=== PATIENT | female | born 1990 | race Caucasian/White ===

== ENCOUNTER 2017-05-27 08:36 | Inpatient (IN) | payer OTHER ==
[~2017-05-27] VITALS: Ht 154.9 cm; Wt 85.3 kg
[~2017-05-27 08:36] MED LIST: AMOXICILLIN875 M1 PO
[2017-05-27 09:00] VITALS: BP 104/66
[2017-05-27] MEDS ORDERED: PRENATAL TABLE1 EAC2 PO (09:07)
[2017-05-27] MEDS ORDERED: FERRALET 90 TA1 EACH PO (09:08)
[2017-05-27 09:16] LABS: ABSOLUTE BASOPHIL COUNT 0 /CUMM (0.0-0.2); ABSOLUTE EOSINOPHIL COUNT 0 /CUMM (0.0-0.7); ABSOLUTE GRANULOCYTE CT 5.7 /CUMM (1.4-6.5); ABSOLUTE LYMPH COUNT 1.3 /CUMM (1.2-3.4); ABSOLUTE MONOCYTE COUNT 0.5 /CUMM (0.10-0.60); BASOPHIL % 0.2 % (0.0-2.0); EOSINOPHIL % 0.3 % (0-5); GRANULOCYTE % 75.6 % (42.2-75.2); HEMATOCRIT 35.4 % (37-47); MEAN CORPUSCULAR HGB 30.6 PG (27.0-31.0); MEAN CORPUSCULAR HGB CONC 33.6 G/DL (33.0-37.0); MEAN CORPUSCULAR VOLUME 91.1 FL (81.0-99.0); MEAN PLATELET VOLUME 8.6 FL (7.4-10.4); PLATELET COUNT 204 /CUMM (130-400); RBC DISTRIBUTION WIDTH 15.5 % (11.5-14.5); RED BLOOD CELL CT 3.88 /CUMM (4.20-5.40); WHITE BLOOD CELL COUNT 7.5 /CUMM (4.8-10.8)
--- NOTE | 2017-05-27 09:59 | History & Physical ---
General Information and HPI MD Statement: I have seen and personally examined ANNELISE CRUZ and documented this H&P. The patient is a 27 year old female at [41] weeks and [2] days gestation who presented with a chief complaint of [IOL]. Source of Information: patient Exam Limitations: no limitations History of Present Illness: 27yo, 41 2/7wks, here for IOL due to postdates. she has no complaints today, denies ctxs, no VB or LOF, reports GFM. care started at 7+ wks, hemoglobin alpha chain variant, FOB tested negative, pt takes iron supplement. GBS positive. Allergies/Medications Allergies: Coded Allergies: No Known Allergies (08/07/15) Home Med list Iron Carb,Gl/FA/B12/C/Docusate (Ferralet 90 Tablet) 90 MG-1 MG-12 MCG-120 MG-50 MG TABLET 1 TAB PO DAILY ANEMIA (Reported) Vit No.130/Iron/FA ( Tablet) 27 MG IRON-800 MCG TABLET 1 TAB PO DAILY (Reported) Compliance With Home Meds: GOOD Past History siderographer History : 2 Para: 0 Last Menstrual Period: 08/11/2016 Estimated Delivery Date: 05/18/2017 Past siderographer History: non-contributory Medical History Blood Transfusion Hx: No Neurological: NONE EENT: NONE Cardiovascular: NONE Respiratory: NONE Gastrointestinal: NONE Hepatic: NONE Renal: NONE Musculoskeletal: NONE Psychiatric: NONE Endocrine: NONE Blood Disorders: anemia, Hgb alpha chain variant Cancer(s): NONE FINANCE ADMINISTRATOR/Reproductive: NONE Surgical History Pertinent Surgical History: non-contributory Past Family/Social History Psychosocial History Where do you live? Home Smoking Status: Former Smoker ETOH Use: denies use Illicit Drug Use: denies illicit drug use Review of Systems Review of Systems Constitutional: Reports: no symptoms. EENTM: Reports: no symptoms. Cardiovascular: Reports: no symptoms. Respiratory: Reports: no symptoms. GI: Reports: no symptoms. Genitourinary: Reports: see HPI. Musculoskeletal: Reports: no symptoms. Skin: Reports: no symptoms. Neurological/Psychological: Reports: no symptoms. Hematologic/Endocrine: Reports: see HPI. Immunologic/Allergic: Reports: no symptoms. All Other Systems: Reviewed and Negative Date of LMP: 08/11/16 Post Menopausal: No Exam & Diagnostic Data Last 24 Hrs of Vital Signs/I&O Vital Signs Date Time Temp Pulse Resp B/P B/P Pulse O2 O2 Flow FiO2 Mean Ox Delivery Rate 05/27 0900 104/66 Intake & Output 05/27 1600 05/27 0800 05/27 0000 Intake Total Output Total Balance Patient 85.275 kg Weight Obstetric Exam Wgt Gained During : 47lbs Pelvimetry: adequate Dilation (cm): 0 Effacement (%): 50 Station: -3 Membranes: intact Fluid: unknown Fundal Height (cm): 40 Multiple Gestation? No Contractions: none #1 - FHR Baseline: 130 Category: 1 Estimated Weight: [id number] Presentation: vertex Patient for Induction? Yes Sullivan Score Sullivan Score Response Value Cervix Position: posterior 0 Cervix Consistency: medium 1 Cervix Effacement: 30-50% 1 Cervix Dilation: closed 0 Cervix Station: -3 0 Total 2 Physical Exam: VSS general: NAD Abdomen: gravid, soft, nontender Ext: DCT (-) Labs Blood Type & Rh: A positive Antibody Screen: negative Hct/Hgb & Platelets #1: 14.6/45.1%,[id number] Hct/Hgb & Platelets #2: 10.9/34.7%,[id number] Rubella: immune VDRL #1: negative VDRL #2: negative HbsAg: negative HIV #1: negative HIV #2 negative 1 Hr P Group B Strep: positive Initial Ultrasound: IUP at 7+ wks Anatomy Ultrasound: nl Ultrasound for EFW: [id number] on 05/22/2017 Genetic Testing: nl Last 24 Hrs of Labs/Say: Laboratory Tests 05/27/17 0852: CBC w Diff NO MAN DIFF REQ, RBC 3.88 L, MCV 91.1, MCH 30.6, MCHC 33.6, RDW 15.5 H, MPV 8.6, Gran % 75.6 H, Lymphocytes % 17.4 L, Monocytes % 6.5, Eosinophils % 0.3, Basophils % 0.2, Absolute Granulocytes 5.7, Absolute Lymphocytes 1.3, Absolute Monocytes 0.5, Absolute Eosinophils 0, Absolute Basophils 0, Urine Color YEL, Urine Clarity HAZY H, Urine pH 6.0, Ur Specific [place] 1.025, Urine Protein NEG, Urine Ketones NEG, Urine Nitrite NEG, Urine Bilirubin NEG, Urine Urobilinogen 0.2, Ur Leukocyte Esterase NEG, Ur Microscopic SEDIMENT EXAMINED, Urine RBC 1-3, Urine WBC RARE, Ur Epithelial Cells MANY H, Urine Bacteria MOD H, Urine Hemoglobin NEG, Urine Glucose NEG Assessment/Plan Assessment/Plan: 27yo, 41 2/7wks, postdates, IOL 1. admit pt, admission labs 2. R/B/A of IOL d/w pt , she understand. cervical ripening with miswoprostol d/w pt, she agreed. R/B/A of misoprostol d/w pt, she understand, all questions ans wered, 1 st dose of misoprostol placed at 9: 45AM 3. Antibiotics for GBS prophylaxis when in labor 4. monitor closely As Ranked By This Provider Problem List: 1. 2. Post-dates Core Measures Venous Thromboembolism VTE Risk Factors / No Mechanical VTE Prophylaxis d/t LowRisk-No Interven Req'd No VTE Pharm Prophylaxis d/t LowRisk-No Interven Req'd Attending MD Review Statement Attending Statement Attending MD Statement: examined this patient, discussed with family, discussed w/nursing
--- NOTE | 2017-05-27 17:42 | PN- OBGYN ---
Surgical Brief Attending Note Brief Attending Note: pt is ambulating, no complaints on TOCO: occasional ctxs, FHR cat I cervix closed/50%/-3 will use cervidil for IOL, R/B/A of cervidil d/w pt, she undesrtand and agreed. cervidil 10mg placed in vagina at 5: 15PM, will monitor closely
--- NOTE | 2017-05-28 16:20 | PN- Obstetrical ---
Subjective Subjective: feeling pressure Review of Systems Constitutional: Reports: no symptoms. Objective Last 24 Hrs of Vital Signs/I&O vss Physical Exam General Appearance Alert, Oriented X3, Cooperative, No Acute Distress Cardiovascular Regular Rate Lungs Clear to Auscultation Obstetric Exam Dilation (cm): 10 Effacement (%): 99 Station: 0 Membranes: SROM Fluid: clear Multiple Gestation? No Contractions: q2-3 min Infant #1 - FHR Baseline: 130 Category: 1 Estimated Weight: [id number] Presentation: vertex Current Medications: Current Medications Sig/Keiry Start time Last Medication Dose Route Stop Time Status Admin Butorphanol Tartrate 1 MG Q4P PRN 05/27 0845 AC 05/28 IV 1134 Butorphanol Tartrate 1 MG Q4P PRN 05/27 0845 AC 05/28 IM 1134 Dinoprostone 10 MG SEE ADMIN CRITERIA 05/27 1700 AC 05/27 VAG 1718 Lactated Ringer's 1,000 ML Q8H 05/27 0845 AC 05/28 IV 0942 Misoprostol 25 MCG Q4 PRN 05/27 0930 AC 05/27 VAG 0946 Oxytocin 30 UNITS PER PROTOCL 05/28 0745 AC 05/28 Lactated Ringer's 500 ML IV 0809 Penicillin G 2.5 MU Q4H 05/28 0400 AC 05/28 Potassium IV 1225 Dextrose/Water 100 ML Penicillin G 5 MU ONCE ONE 05/28 0000 DC 05/27 Potassium IV 05/28 0029 2352 Dextrose/Water 100 ML Penicillin G 5 MU .STK-MED ONE 05/27 2320 DC Potassium IM 05/27 2321 Last 24 Hrs of Labs/Say: Laboratory Tests 05/28/17 0930: Membrane Rupture POSITIVE Microbiology 05/28 1434 URINE ROUT: Urine Culture - RECD Assessment/Plan Assessment/Plan pt fully dilated will start pushing Problem List: 1. Post-dates Attending MD Review Statement Attending Statement Attending MD Statement: examined this patient, discussed with family, discussed with nursing
--- NOTE | 2017-05-28 19:26 | Labor & Delivery Summary ---
Delivery Summary Vaginal Delivery: Vaginal: vertex Episiotomy/Lacerations: Episiotomy/Lacerations: 3DEGREE Type: 3 DEGREE MIDLINE Repair: 0 POLYSORB AND 3-0 POLYSORB Anesthesia: 10CC NESICAINE Placenta: Placenta: spontanteous Anesthesia: block Baby's Weight: 8 LBS 8OZ Apgars - 1 Min: 9 Apgars - 5 Min: 9 Additional Comments: PUSHED AFTER 60 MINUTE LABORING DOWN SPONTANIOUS 3 DEGREE LAC
[2017-05-29 08:07] LABS: ABSOLUTE BASOPHIL COUNT 0 /CUMM (0.0-0.2); ABSOLUTE EOSINOPHIL COUNT 0 /CUMM (0.0-0.7); ABSOLUTE MONOCYTE COUNT 1.1 /CUMM (0.10-0.60); BASOPHIL % 0.2 % (0.0-2.0); PLATELET COUNT 168 /CUMM (130-400)
[2017-05-29 08:39] LABS: ABSOLUTE GRANULOCYTE CT 10.7 /CUMM (1.4-6.5); ABSOLUTE LYMPH COUNT 1.8 /CUMM (1.2-3.4); EOSINOPHIL % 0.2 % (0-5); HEMATOCRIT 30.9 % (37-47); MEAN CORPUSCULAR HGB 31.2 PG (27.0-31.0); MEAN CORPUSCULAR HGB CONC 34.3 G/DL (33.0-37.0); MEAN CORPUSCULAR VOLUME 90.9 FL (81.0-99.0); MEAN PLATELET VOLUME 9.4 FL (7.4-10.4); RBC DISTRIBUTION WIDTH 15.3 % (11.5-14.5)
[2017-05-29 09:03] LABS: WHITE BLOOD CELL COUNT 13.7 /CUMM (4.8-10.8)
--- NOTE | 2017-05-29 18:51 | PN- Post Delivery/GYN ---
Subjective Subjective: pt feeling well. amb / void / dominic po. +bf. pain well controlled. Objective Last 24 Hrs of Vital Signs/I&O v/ss Vital Signs Date Time Temp Pulse Resp B/P B/P Pulse O2 O2 Flow FiO2 Mean Ox Delivery Rate 05/29 0050 98.2 tm-05/28 2352 100.4 Physical Exam: nad abd soft nt ff andreas min lochia ext nt no ed Current Medications: Current Medications Sig/Keiry Start time Last Medication Dose Route Stop Time Status Admin Acetaminophen 650 MG Q4P PRN 05/28 1929 AC 05/28 PO 2352 Bupivacaine HCl 10 ML .STK-MED ONE 05/28 1850 DC EPID 05/28 185 Butorphanol Tartrate 1 MG Q4P PRN 05/27 0845 AC 05/28 IV 1134 Butorphanol Tartrate 1 MG Q4P PRN 05/27 0845 AC 05/28 IM 1134 Chloroprocaine HCl 30 ML ONCE ONE 05/28 1929 DC 05/28 SC 05/28 193 1900 Dinoprostone 10 MG SEE ADMIN CRITERIA 05/27 1700 AC 05/27 VAG 1718 Docusate Sodium 100 MG BID PRN 05/28 1929 AC PO Hydroxyzine HCl 50 MG AT BEDTIME NEED.. 05/28 1929 AC PO Ibuprofen 800 MG Q6P PRN 05/28 193 AC 05/29 PO 1818 Lactated Ringer's 1,000 ML Q8H 05/27 0845 05/28 IV 0942 Magnesium Hydroxide 30 ML DAILY PRN 05/28 1929 AC PO Methylergonovine 0.2 MG STAT STA 05/28 1918 DC 05/28 Maleate IM 05/28 192 1857 Misoprostol 25 MCG Q4 PRN 05/27 0930 AC 05/27 VAG 0946 Oxytocin 20 UNITS Q5H 05/28 193 DC 05/28 Lactated Ringer's 1,000 ML IV 05/29 28 191 Oxytocin 30 UNITS PER PROTOCL 05/28 0745 AC 05/28 Lactated Ringer's 500 ML IV 0809 Penicillin G 2.5 MU Q4H 05/28 0400 05/28 Potassium IV 1630 Dextrose/Water 100 ML Last 24 Hrs of Labs/Say: Laboratory Tests 05/29/17 0620: CBC w Diff NO MAN DIFF REQ, RBC 3.40 L, MCV 90.9, MCH 31.2 H, MCHC 34.3, RDW 15.3 H, MPV 9.4, Gran % 78.0 H, Lymphocytes % 13.2 L, Monocytes % 8.4, Eosinophils % 0.2, Basophils % 0.2, Absolute Granulocytes 10.7 H, Absolute Lymphocytes 1.8, Absolute Monocytes 1.1 H, Absolute Eosinophils 0, Absolute Basophils 0 Assessment/Plan Assessment/Plan ppd 1 s/p , doing well -routine pp care -ant d/c home tome w/ f/u 6 wks -d/c instructions reviewed Attending MD Review Statement Attending Statement Attending MD Statement: examined this patient, discussed with family, discussed with nursing
[2017-05-29] MEDS ORDERED: IBUPROFEN800 M1 PO (18:53)
--- NOTE | 2017-05-30 08:22 | PN- OBGYN ---
See Addendum Surgical Brief Attending Note Brief Attending Note: pt doing well. no c/o. v/ss. exam wnl. ppd2 s/p vavd. d/c home w/ f/u 6 wks.
== END 2017-05-30 11:07 | DRG 542 ==
LOC: GNO 08:36
PROVIDERS: Obstetrics & Gynecology
PROC: 3E0P7VZ Introduction of Hormone into Female Reproductive, Via Natural or Artificial Opening (ICD-10-PCS; 2017-05-27)
PROC: 0DQR0ZZ Repair Anal Sphincter, Open Approach (ICD-10-PCS; principal; 2017-05-28)
PROC: 10E0XZZ Delivery of Products of Conception, External Approach (ICD-10-PCS; principal; 2017-05-28)
DX: O48.0 Post-term pregnancy (principal); O70.20 Third degree perineal laceration during delivery, unspecified; Z3A.41 41 weeks gestation of pregnancy; O99.824 Streptococcus B carrier state complicating childbirth; Z37.0 Single live birth
CPT/HCPCS: GNOP; GNOS; 80307; 81001; 84112; 87086; J7120